=== PATIENT | female | born 1965 | race Caucasian/White ===

== ENCOUNTER 2017-11-06 15:00 | Emergency (ER) | payer BC ==
[2017-11-06 15:06] VITALS: BP 151/75
[2017-11-06] MEDS ORDERED: fentaNYL 100 MCG/2 ML SDV IM ONE (16:04)
--- NOTE | 2017-11-06 16:04 | EDM.PDOC ---
ED HPI GENERAL MEDICAL PROBLEM - General Chief Complaint: Upper Extremity Injury/Pain Stated Complaint: left arm pain Time Seen by Provider: 11/06/17 15:50 Source of Information: Reports: Patient History Limitations: Reports: No Limitations - History of Present Illness INITIAL COMMENTS - FREE TEXT/NARRATIVE: Was out shoveling snow and tripped over the shovel. Fell onto her left shoulder. Has pain in the shoulder area with any movement or jarring. NO numbness or tingling noted. Denies any other injuries. Onset: Sudden Location: Reports: Upper Extremity, Left Quality: Reports: Throbbing Severity: Moderate Associated Symptoms: Reports: No Other Symptoms Left Arm Pain Score (Numeric/FACES): 8 - Related Data Allergies Allergy/AdvReac Type Severity Reaction Status Date / Time Sulfa (Sulfonamide Allergy Cannot Verified 11/06/17 15:01 Antibiotics) Remember venom-honey bee Allergy Anaphylactic Verified 11/06/17 15:01 [bee venom (honey bee)] Shock Home Meds: Home Meds Acetaminophen with Codeine [Acetaminophen-Cod #3] 1 each PO BEDTIME PRN [History] Calcium Carbonate/Vitamin D3 [Calcium 600 + Vit D 400] 1 each PO QAM 02/10/15 [ History] Calcium Carbonate/Vitamin D3 [Calcium 600 + Vit D 400] 2 each PO QPM 02/10/15 [ History] EPINEPHrine [Epipen] 0.3 mg IM ASDIRECTED PRN 02/10/15 [History] Furosemide [Furosemide] 80 mg PO DAILY 02/10/15 [History] Lansoprazole [Lansoprazole] 30 mg PO DAILY 02/10/15 [History] Rifampin [Rifampin] 600 mg PO DAILY 02/10/15 [History] Spironolactone [Aldactone] 200 mg PO DAILY 02/10/15 [History] Ursodiol [Actigal] 300 mg PO QAM 02/10/15 [History] Ursodiol [Actigal] 600 mg PO QPM 02/10/15 [History] Zolpidem Tartrate [Zolpidem Tartrate ER] 12.5 mg PO BEDTIME 02/10/15 [History] hydrOXYzine HCl [Hydroxyzine HCl] 100 mg PO BEDTIME 02/10/15 [History] traMADol HCl [Tramadol HCl] 50 mg PO TID PRN 02/10/15 [History] 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: Musculoskeletal History: Reports: Fracture - Past Surgical History HEENT Surgical History: Reports: Tonsillectomy Female Surgical History: Reports: Section Musculoskeletal Surgical History: Reports: Knee Replacement, Other (See Below) Other Musculoskeletal Surgeries/Procedures:: R) forearm fx Social & Family History - Tobacco Use Smoking Status *Q: Former Smoker Used Tobacco, but Quit: Yes Month Tobacco Last Used: 1 yo - Caffeine Use Caffeine Use: Reports: Coffee - Recreational Drug Use Recreational Drug Use: No Review of Systems - Review of Systems Review Of Systems: See Below Constitutional: Reports: No Symptoms Musculoskeletal: Reports: Shoulder Pain Skin: Reports: No Symptoms Neurological: Reports: No Symptoms ED EXAM, GENERAL - Physical Exam Exam: See Below Exam Limited By: No Limitations General Appearance: Alert, WD/WN, Moderate Distress Eye Exam: Bilateral Eye: PERRL Ears: Normal External Exam, Normal Canal Head: Atraumatic, Normocephalic Neck: Normal Inspection, Supple, Non-Tender, Full Range of Motion Respiratory/Chest: No Respiratory Distress, Lungs Clear, Normal Breath Sounds Cardiovascular: Regular Rate, Rhythm Extremities: Other (left upper extremity is tender with palpation and movement or the arm. Good pulses distally. Good sensation distally.) Neurological: Alert, Oriented Skin Exam: Warm, Dry Course - Vital Signs Last Recorded V/S: Last Vital Signs Temp 96.4 F 11/06/17 15:03 Pulse 80 11/06/17 15:03 Resp 18 11/06/17 15:03 BP 151/75 H 11/06/17 15:03 Pulse Ox 94 L 11/06/17 15:03 - Orders/Labs/Meds Orders: Active Orders 24 hr Category Date Time Status Humerus Lt [CR] Stat Exams 11/06/17 15:06 Taken Meds: Medications Discontinued Medications Generic Name Dose Route Start Last Admin Trade Name Freq PRN Reason Stop Dose Admin Fentanyl 50 mcg 11/06/17 16:04 11/06/17 16:09 Sublimaze IM 11/06/17 16:05 50 mcg ONETIME ONE Administration Departure - Departure Time of Disposition: 16:01 Disposition: Home, Self-Care 01 Condition: Good Clinical Impression: Fracture of humerus Qualifiers: Encounter type: initial encounter Humerus Location: proximal Fracture type: closed Fracture morphology: unspecified fracture morphology Laterality: left Qualified Code(s): S42.202A - Unspecified fracture of upper end of left humerus , initial encounter for closed fracture - Discharge Information Referrals: Nikki Hinds PA-C [Emergency Provider] - Forms: ED Department Discharge Additional Instructions: [place] 5/325 take 1 tablet every 4 hours as needed for pain Leave immobilizer on at all times except to shower and then you must support it recheck in 2 weeks with xray Call clinic if any concerns noted. - Problem List & Annotations (1) Fracture of humerus SNOMED Code(s): 91348590 Code(s): S42.309A - UNSP FRACTURE OF SHAFT OF HUMERUS, UNSP ARM, INIT Status: Acute Priority: High Qualifiers: Encounter type: initial encounter Humerus Location: proximal Fracture type: closed Fracture morphology: unspecified fracture morphology Laterality : left Qualified Code(s): S42.202A - Unspecified fracture of upper end of left humerus, initial encounter for closed fracture - Problem List Review Problem List Initiated/Reviewed/Updated: Yes - My Orders Last 24 Hours: My Active Orders 11/06/17 15:06 Humerus Lt [CR] Stat - Assessment/Plan Last 24 Hours: My Active Orders 11/06/17 15:06 Humerus Lt [CR] Stat
== END 2017-11-06 16:20 | disposition home or self-care (01) ==
LOC: CC.ED 15:00
DX: S42.212A Unspecified displaced fracture of surgical neck of left humerus, initial encounter for closed fracture (principal); S42.252A Displaced fracture of greater tuberosity of left humerus, initial encounter for closed fracture; S60.512A Abrasion of left hand, initial encounter; S60.812A Abrasion of left wrist, initial encounter; Z87.891 Personal history of nicotine dependence; Z79.899 Other long term (current) drug therapy; Z88.2 Allergy status to sulfonamides; Z91.030 Bee allergy status; W01.0XXA Fall on same level from slipping, tripping and stumbling without subsequent striking against object, initial encounter; Y93.H1 Activity, digging, shoveling and raking
CPT/HCPCS: 73060; 96372; 99283; J3010

== ENCOUNTER 2023-01-05 10:38 | Emergency (ER) | payer BC ==
[2023-01-05 10:47] VITALS: BP 151/77; PULSE 71
[2023-01-05] MEDS: Acetaminophen/HYDROcodone 325-5 MG Tab PO ONE (11:04)
[2023-01-05] MEDS: Take Home: Acetaminophen/HYDROcodone 325-5 MG, 2 Tab Pack PO ONE (11:58)
== END 2023-01-05 12:18 | disposition home or self-care (01) ==
LOC: CC.ED 10:38
DX: S52.532A Colles' fracture of left radius, initial encounter for closed fracture (principal); Z88.2 Allergy status to sulfonamides; Z91.030 Bee allergy status; W00.0XXA Fall on same level due to ice and snow, initial encounter
CPT/HCPCS: 29125; 73110-LT; 99283; 99283-25; A9270-GY